=== PATIENT | male | born 1960 | race Caucasian/White ===

== ENCOUNTER 2020-05-14 12:29 | Outpatient (CLI) | payer BC, SELFPAY ==
--- NOTE | ~2020-05-14 | MR_ITS ---
EXAMINATION: MR shoulder LT wo con DATE: 05/14/2020 13:43 INDICATION: Left shoulder pain TECHNIQUE: Magnetic resonance imaging (MRI) of the left shoulder was performed without intravenous co ntrast. Sequences included axial PD-weighted FS FSE, coronal oblique PD-weighted FS FSE, coronal obli que T2-weighted FS FSE, sagittal PD-weighted FS FSE, and sagittal T1-weighted SE. COMPARISON: None. FINDINGS: Coracoacromial arch: The acromion undersurface is curved in morphology (type II). The coracoacromial ligament is normal. M inimal acromioclavicular osteoarthritis. Rotator cuff: The supraspinatus, infraspinatus and teres minor tendons are normal. The subscapularis tendon is norm al. Normal rotator cuff muscle bulk and signal. Biceps tendon, glenoid labrum and glenohumeral cartilage: Long head of the biceps tendon is normal. Linear fluid signal intensity labral tear extending beginni ng posteriorly at the 9:00 position and extending inferiorly extending anteriorly along the inferior labrum to at least the 3:00 position anteriorly. Partial-thickness cartilage loss with smooth chondra l surface along the cephalad aspect of the humeral head. Partial-thickness chondral fissure positione d slightly inferior to the epicenter of the glenoid. Fluid: Physiologic amount of fluid in the glenohumeral joint and biceps tendon sheath. No loose osteochondra l bodies. No abnormal fluid signal in the subacromial/subdeltoid bursa to suggest bursitis. Bones/other: Normal marrow signal with no edema, fracture or pathologic marrow replacing process. There is promine nt thickening and mild increased signal of the joint capsule at the axillary recess as well as at the rotator cuff interval, both findings which can be seen in the setting of adhesive capsulitis which i s a clinical diagnosis. Feathery muscular edema at the central aspect of the deltoid muscle consisten t with low-grade strain without a discrete tear defect. IMPRESSION: 1. Feathery edema at the central deltoid consistent with low-grade strain or contusion in the appropr iate clinical setting. 2. Mild glenohumeral osteoarthritis with tear of the posterior half of the labrum. 3. Thickening of the capsule at the axillary recess and at the rotator cuff interval, both findings w hich can be seen with adhesive capsulitis which is a clinical diagnosis. Reviewed, dictated and finalized at location B. IMPRESSION: 1. Feathery edema at the central deltoid consistent with low-grade strain or co ntusion in the appropriate clinical setting. 2. Mild glenohumeral osteoarthritis with tear of the posterior half of the labr um. 3. Thickening of the capsule at the axillary recess and at the rotator cuff int erval, both findings which can be seen with adhesive capsulitis which is a clin ical diagnosis.
== END 2020-05-14 12:30 | disposition home or self-care (01) ==
PROVIDERS: Visit Provider Orthopaedic Surgery
DX: M19.012 Primary osteoarthritis, left shoulder (principal)
CPT/HCPCS: 73221

== ENCOUNTER 2024-12-31 03:21 | Day surgery (SDC) | payer BC, SELFPAY ==
[2024-12-20 10:08] VITALS: BMI 30.2
--- OUTSIDE RECORDS SUMMARY | 2024-12-31 03:24 | XMS_ITS | Clinical Summary ---
Author Organization [facility] Address [address] [place] [address] Care Team Providers Care Laborer Operator Name Role Phone Cherise Granado MD Primary Care Provider [phone] Source Comments [facility],non-owned Affiliates and Associated Physician Practices is amultiple site organization consisting of ambulatory clinics and hospital sitesin [place], [place], [place] and [place]. This disclosure is being madepursuant to the Care Everywhere program and may not contain all information available regarding this patient. Last updated 18.[facility] Allergies Active Allergy Reactions Criticality Noted Date Comments Hydrocortisone Rash Medium 05/21/2012 Sulfa Drugs Rash Medium Medications * Be aware that medications may not be up to date on this document. Alwaysverify current medications with the patient. aspirin (ASPIRIN) 81 MG tablet Take 81 mg by mouth once daily Active nitroGLYCERIN (NITROSTAT) 0.4 MG tablet Dissolve 1 tablet under the tongue every 5 minutes as needed for Angina 25 tablet 4 11/20/2018 Active hydroCHLOROthia zide (MICROZIDE) 12.5 MG capsule Take 1 capsule by mouth every 2 days 01/03/2020 Active carvedilol (COREG) 25 MG tablet TAKE ONE TABLET BY MOUTH TWICE A DAY 180 tablet 4 01/20/2020 Active rosuvastatin (CRESTOR) 40 MG tablet TAKE ONE TABLET BY MOUTH ONCE DAILY 90 tablet 4 03/02/2020 Active lisinopril (PRINIVIL; ZESTRIL) 40 MG tablet TAKE ONE TABLET BY MOUTH ONCE DAILY 90 tablet 4 03/02/2020 Active amLODIPine (NORVASC) 10 MG tablet TAKE ONE TABLET BY MOUTH ONCE DAILY 90 tablet 4 07/01/2020 Active Active Problems Problem Noted Date Diagnosed Date Renal insufficiency 12/29/2019 Overview (12/29/2019): 01/03 BUN 20 creatinine 1.38 GFR 56 08/05 BUN 18 creatinine 1.24 GFR 64 12/02 BUN 15 creatinine 1.06 GFR 78 Elevated homocysteine 11/20/2018 Overview (11/20/2018): 09/04 homocysteine 18.3 (normal 15 -- no MTHFR mutation) Coronary artery disease invo lving [place] coronary artery of [place] heart 11/19/2018 Overview (11/22/2018): 11/02 NSTE-[place] 11/02 Cath: Normal LVEF, LV 126/4, 60/90% pLAD, 90% ostial D1, 90% ostial OM1, 99% pRCA 11/02 CABG x [address] Monse [place]: SANDOVAL to LAD, SVG to PLV -> PDA, radial to diagonal, SVG to OM Nonrheumatic aortic valve insufficiency 11/20/19 Overview (11/20/2018): 11/02 echo: EF73%, mild AI 11/02 EVANGELINA (OR): EF 55%, mild AI, trace MR/TR Atherosclerosis of right carotid artery 11/20/19 Overview (11/19/2018): 11/02 carotid duplex: right ICA plaque Essential hypertension 11/19/2018 Pure hypercholesterolemia 11/19/2018 Overview (12/29/2019): 01/03 Cholesterol 90 HDL 27 LDL 44 triglyceride 97, normal LFTs/glucose 12/02 Cholesterol 89 HDL 25 LDL 38 triglyceride 129, normal CMP 09/04 Cholesterol 124 HDL 25 LDL 76 triglyceride 113, AST 20, CRP <0.3 06/27 Cholesterol 214 HDL 37 LDL 160 triglyceride 86 Family History Relation Name Status Comments Brother 1 Alive [place] & stents at 48; CABG at 50 Brother 2 Alive no heart diseas e Father Alive no known heart dz, but estranged Mother Alive no heart dz Social History Tobacco Use Types Packs/Day Years Used Date Smoking Tobacco: Never Smokeless Tobacco: Never Sex and Gender Information Value Date Recorded Sex Assigned at Not on file Legal Sex Male 10:05 AM CDT Gender Identity Not on file Sexual Orientation Not on file 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[employer] Not on file Not on file Not on file Last Filed Vital Signs Vital Sign Reading Time Taken Comments Blood Pressure 170/98 06/28/2019 3:30 PM PLASTICS NURSE Pulse 61 06/28/2019 2:55 PM PLASTICS NURSE Temperature - - Respiratory Rate 12 06/28/2019 2:55 PM PLASTICS NURSE Oxygen Saturation 99% 06/28/2019 2:55 PM PLASTICS NURSE Inhaled Oxygen Concentration - - Weight 94.3 kg (208 lb) 06/28/2019 2:55 PM PLASTICS NURSE Height 181 cm (5' 11.25) 06/28/2019 2:55 PM PLASTICS NURSE Body Mass Index 28.81 06/28/2019 2:55 PM PLASTICS NURSE Plan of Treatment Health Maintenance Due Date Last Done Comments COLOGUARD (AGES 45-75) - COL ON CA SCREENING 1961 COLON MONITORING 1961 COLONOSCOPY - COLON CA SCREENING 1961 CT COLONOGRAPHY - COLON CA SCREENING 1961 Colorectal Cancer Screening 1961 FIT - COLON CA SCREENING 1961 FLEX SIG - COLON CA SCREENING 1961 HIV SCREENING 01/20/1976 HEPATITIS C SCREENING 01/15/1979 DTAP/TDAP/TD VACCINES (1 - Tdap) 01/20/1980 PNEUMOCOCCAL VACCINE 50+ (1 of 1 - PCV) 2011 ZOSTER VACCINE (1 of 2) 2011 COVID-19 VACCINE ( - 2023-2 5 season) 2024 DEPRESSION SCREENING 07/17/2024 INFLUENZA VACCINE (Season Ended) 2025 Respiratory Syncytial Virus (RSV) Vaccine Pt: or over 60 yrs (1 - 1-dose 75+ series) 01/20/2036 HEPATITIS B VACCINE Aged Out No longe r eligible based on patient's age to complete this topic HIB VACCINE Aged Out No longer eligi ble based on patient's age to complete this topic HPV VACCINE Aged Out No longer eligi ble based on patient's age to complete this topic MENINGOCOCCAL (Group B) VACC INE SHARED DECISION-MAKING Aged Out No longer eligibl e based on patient's age to complete this topic MENINGOCOCCAL GROUPS A/C/Y/W VACCINE Aged Out No longer eligible b ased on patient's age to complete this topic Insurance ANTHEM Care Teams Laborer Operator Relationship Specialty Start Date End Date Cherise Granado MD [address] [place] [address] PCP - General Rheumatology 11/20/18
--- OUTSIDE RECORDS SUMMARY | 2024-12-31 03:24 | XMS_ITS | Clinical Summary ---
Author Organization [facility] Address [address] [place] [address] Phone Care Team Providers Care Administrative Services Specialist Name Role Phone Paul Espinosa MD Primary Care Provider [phone] Allergies Active Allergy Reactions Criticality Noted Date Comments Hydrocortisone Unknown 05/21/2012 Sulfa (Sulfonamide Antibiotics) Unknown 11/2011 Medications aspirin (VIC) 81 mg Oral Tab Take by mouth. Active hydrochlorothiaz harsh (HYDRODIURIL) 12.5 mg Oral tablet Take 12.5 mg by mouth daily. Active AMLODIPINE BESYLATE (AMLODIPINE ORAL) Take by mouth. Active Social History Tobacco Use Types Packs/Day Years Used Date Smoking Tobacco: Never Alcohol Use Standard Drinks/Week Comments Yes 1.7 (1 standard drink = 0.6 oz p ure alcohol) Sex and Gender Information Value Date Recorded Sex Assigned at Not on file Legal Sex Male 2:53 AM ZINC CHLORIDE OPERATOR Gender Identity Not on file Sexual Orientation Not on file Last Filed Vital Signs Vital Sign Reading Time Taken Comments Blood Pressure 162/103 06/05/2012 9:15 AM ZINC CHLORIDE OPERATOR Pulse 77 06/05/2012 9:15 AM ZINC CHLORIDE OPERATOR Temperature 36.2 C (97.1 F) 06/05/2012 9:09 AM ZINC CHLORIDE OPERATOR Respiratory Rate 18 06/05/2012 9:15 AM ZINC CHLORIDE OPERATOR Oxygen Saturation 97% 06/05/2012 9:15 AM ZINC CHLORIDE OPERATOR Inhaled Oxygen Concentration - - Weight 93 kg (205 lb) 05/29/2012 4:28 PM ZINC CHLORIDE OPERATOR Height 185.4 cm (6' 1) 05/29/2012 4:28 PM ZINC CHLORIDE OPERATOR Body Mass Index 27.05 05/29/2012 4:28 PM ZINC CHLORIDE OPERATOR Plan of Treatment Health Maintenance Due Date Last Done Comments DTAP/TDAP/TD VACCINES (1 - Tdap) 01/20/1980 FIT-DNA Q 3 years 2006 FIT/FOBT Q 1 year 2006 Flex Sig/CT Colonography Q 5 years 2006 ZOSTER VACCINE (1 of 2) 2011 COLORECTAL SCREENING 06/05/2022 06/05/2012, 06/05/20 12 Colorectal Cancer Screening 06/05/2022 INFLUENZA VACCINE (#1) 2024 RSV VACCINE (60+ or ) (1 - 1-dose 75+ series) 01/20/2036 Insurance [facility] [id number] Advance Directives For more information, please contact: [phone] * Full Code (Latest Code Status on File) Date Activated Date Inactivated Comments 06/05/2012 7:55 AM 06/05/2012 11:34 AM Care Teams Administrative Services Specialist Relationship Specialty Start Date End Date Paul Espinosa MD [address] [facility] [address] [id number] PCP - General Internal Medicine 05/21/12
--- OUTSIDE RECORDS SUMMARY | 2024-12-31 03:24 | XMS_ITS | Data Portability ---
Author Organization [facility] [place] [employer] [facility], Medical Address [address] [place] [id number] Care Team Providers Care Sql Ssrs Ssis Developer Name Role Phone CHERISE ALEXANDER Primary Care Provider Unavailabl e Assessment Encounter Date Assessment Date Assessment LastModified by Organization Details LastModified Time 10/05/2018 10/05/2018 Blood draw for [facility] w IV cmirth Not available 10/08/2018 12:06:26 10/05/2018 10/05/2018 1. Patient is definitely having cardiogenic chest pain with abnormal rhythms that i am not able to capture on the ecg. The ecg is not very clear, even after repeating tho it was a better quality. He does have some upsloping st segments in V1 and V2 and tall QRS waves in lateral leads suggestive of LVH and HIGH BP. This is a change from ECG on 08/09 that i read from [facility], where he had more inferior T wave inversion. Also, could he have an atrial flutter pattern with a fairly constant rhythm? I will repeat another ecg. I did let him know this and that if he will not go to the hospital, that i will at the very least start him on coreg 6.25 and increase if needed. He claims that his home BPs run in the 130s. However the tall qrs suggests a more chronic issue. i did call him and talk to him after the visit and let him know about the ecg changes that i did not notice earlier and talked to him about re thinking a stent or intervention if the pain got progressive. He understood and will go to [facility] if it got worse. he will not do vigorous exercise this weekend. Not available 10/05/2018 22:32:28 10/09/2018 10/09/2018 Blood draw for [facility] w IV cmirth Not available 10/09/2018 15:17:07 10/09/2018 10/09/2018 Caden survived the weekend, with no visits to the hospital and since starting coreg, his angina has decreased in severity and he almost has no palpitations. His BP is still high and in the light of angina, i think that he should have better control. I will increase his coreg to 12.5 mg bid. He knows and has been made aware to go to the ER should his pain start at rest or not subside. his ECG compared to last monday, appears the same. he still has some st elevation in V1 and V2. THese were reviewed with the patient. Not available 10/11/2018 13:27:00 Plan of Treatment Reminders Order Date Submit Date Provider Last Modified By Organization Details Last Modified Time Details Appointments None recorded. Lab pro BNP (pro B-type natriureti c peptide), serum or plasma 2018 019 5 Minutes [facility], [address] [facility], [place], [address], 9 14:18:58 Referral None recorded. Procedures None recorded. Surgeries None recorded. Imaging electrocar diogram [address] [facility], [address], [place], [address], 9 14:29:58 electrocar diogram [address] [facility], [address], [place], [address], 9 20:37:49 Medication Orders Coreg 12.5 mg tablet 2018 019 [id number], [address], [place], [address], 9 13:30:29 Coreg 6.25 mg tablet 2018 019 [id number], [address], [place], [address], 9 13:24:21 Patient TargetsNo targets recorded. Patient Instructions Encounter Date Encounter Id Patient Instructions Last Modified By Organization Details Last Modified Time 10/05/2018 [id number] 1. You have let me know that you do not want to go to the hospital. 2. I will start you on coreg for your high BP and also because it dilates the coronary arteries. 3. Please continue chelation therapy along with a strict diet. 4. start cardiac coherence and do it a few more times than just the one that you have done and practice it often. I called the patient back after hours and post his visit to let him know that his ECG looks worrisome to me in the anterior leads. it looks more like an anterior PA. he is not having pain. I told him to keep a very low threshold and to go to the ER If pain get progressive as this is the IDEAL time to place a stent. He understood and will go to [facility] if he needs to. Not available 10/05/2018 22:24:35 TOTAL TIME: I spent greater than 100% of 30 minutes of time with the patient, face to face during my HPI, ROS, and my exam of her. I also counselled on diet, lifestyle modification and a plan of action to help eliminate the underlying conditions leading to her illness as outlined under ' patient instructions' and assessment. Not available 10/05/2018 22:23:04 10/09/2018 [id number] Patient Instructions Please keep IV site clean and dry for at least [address]. -You may experience bruising and discomfort. -You can apply topical Arnica lotion or gel to the area to minimize bruising. -If you experience redness at the site, fevers, or swelling please call [facility] or seek care with your medical provider. -Your urine may turn a bright yellow color due to the B vitamins in the IV. -If your urine turns red or brown you must seek medical attention immediately. [email or web address] Not available 10/09/2018 15:19:55 10/09/2018 [id number] 1. I will double your coreg to 12. 5 mg twice daily. Hopefully this brings your BP down and will decrease the load on your heart. I am glad that the palpitations are nearly gone. 2. COntinue your diet and keep adding a lot of color making dark green the most prominent as it can release NO - nitric oxide , that causes coronary and general vasodilation. it is best to add some vinegar to the greens to release the NO. Not available 10/11/2018 13:29:27 follow up angina and palpitations, with ecg Not available 10/11/2018 13:29:49 Reason for Referral None Reported. Results Created Date Observation Date Name Description Value Unit Range Abnormal Flag Note LastModifiedBy Organization Detail LastModifiedTime 10/06/19 19 10/06/2018 BMP, serum or plasm a glucose 107 mg/dL 65-99 high Fasti ng refer ence inter mark For someo ne witho ut known diabe maine, a gluco se value betwe en 100 and 125 mg/dL is consi stent with predi abete s and shoul d be confi rmed with a follo w-up test. Not Available [address], [address], 10/06/2018 09:29:34 10/06/19 19 10/06/2018 BMP, serum or plasm a urea nitrogen (BUN) 15 mg/dL 7-25 normal Not Available [address], [address], 10/06/2018 09:29:34 10/06/19 19 10/06/2018 BMP, serum or plasm a creatinine 1.06 mg/dL 0.70-1 .33 normal For patie nts >49 years of age, the refer ence limit for Creat inine is appro ximat kimberly 13% highe r for peopl e ident ified as Afric an-Am vijay n. Not Available [address], [address], 10/06/2018 09:29:34 10/06/19 19 10/06/2018 BMP, serum or plasm a eGFR non-afr. malaysian 78 mL/mi n/1.7 3m2 > or = 60 normal Not Available [address], [address], 10/06/2018 09:29:34 10/06/19 19 10/06/2018 BMP, serum or plasm a eGFR 90 mL/mi n/1.7 3m2 > or = 60 normal Not Available [address], [address], 10/06/2018 09:29:34 10/06/19 19 10/06/2018 BMP, serum or plasm a BUN/creatini ne ratio NOT APPLIC ABLE (calc ) 6-22 Not Available [address], [address], 10/06/2018 09:29:34 10/06/19 19 10/06/2018 BMP, serum or plasm a sodium 141 mmol/ L 135-14 6 normal Not Available [address], [address], 10/06/2018 09:29:34 10/06/19 19 10/06/2018 BMP, serum or plasm a potassium 4.3 mmol/ L 3.5-5. 3 normal Not Available [address], [address], 10/06/2018 09:29:34 10/06/19 19 10/06/2018 BMP, serum or plasm a chloride 104 mmol/ L 98-110 normal Not Available [address], [address], 10/06/2018 09:29:34 10/06/1910/06/2018 BMP, serum or plasm a carbon dioxide 31 mmol/ L 20-32 normal Not Available [address], [address], 10/06/2018 09:29:34 10/06/1910/06/2018 BMP, serum or plasm a calcium 9.5 mg/dL 8.6-10 .3 normal Not Available [address], [address], 10/06/2018 09:29:34 10/10/1910/12/2018 pro BNP (pro B-typ e natri ureti c pepti de), serum or plasm a nt probnp 114 pg/mL 50-75 years : < 300 pg/mL Malorie l, heart failu re unlik kimberly > or = 900 pg/mL High proba bilit y of heart failu re For patie nts with CHD, the optim al risk categ ory cut point s for incid ent HF or CVD (<253 pg/mL men, <372 pg/mL women ) are based on Andreea nieves et al., [facility] 2007; 50:20 5 For patie nts with exist ing HF, the optim al risk categ ory cut point for HF progr essio n (<300 pg/mL ) is based on Christiano et al., Clin Bioch em 2010; 43:14 05 HF diagn osis cut point s in dyspn eic patie nts are based on Erasmo crespo et al., Eur Heart J 2006; 27:33 0 For <50 years : <300 pg/mL HF unlik kimberly, > or = 450 pg/mL high proba bilit y of HF; For 50-75 years : <300 pg/mL HF unlik kimberly, > or = 900 pg/mL high proba bilit y of HF; For >75 years : <300 pg/mL HF unlik kimberly, > or = 1800 pg/mL high proba bilit y of HF For addit ional enior rebecca han refer to http: //tiki doll [employer]ia gnost ics.c om/fa q/FAQ 202 (This link is being provi ded for infor dereck nal/e cynthia ionloli purpo ses only. ) Not Available [address], [place], [address], 10/12/2018 20:17:54 10/16/1910/15/2018 elect melvin majano am Rate & Rhythm Not Available Formerly [facility] [address] , [place], [address], 10/09/2018 11:28:24 10/16/19 19 10/15/2018 elect melvin majano am QRS Not Available Formerly [facility]amed [facility] [address], [place], [address], 10/09/2018 11:28:24 10/16/19 19 10/15/2018 elect rocar diogr am NC Interval Not Available Formerly [facility]amed [facility] [address] [facility], [place], [address], 10/09/2018 11:28:24 10/16/19 19 10/15/2018 elect rocar diogr am QRS Duration Not Available [facility] [address] [facility], [place], [address], 10/09/2018 11:28:24 10/16/19 19 10/15/2018 elect rocar diogr am QT Interval Not Available [facility] [address] [facility], [place], [address], 10/09/2018 11:28:24 10/16/19 19 10/15/2018 elect rocar diogr am Rate & Rhythm Not Available Formerly [facility]amed [facility] [address] [facility], [place], [address], 10/05/2018 13:15:56 10/16/19 19 10/15/2018 elect rocar diogr am QRS Not Available Former[facility] [address] [facility], [place], [address], 10/05/2018 13:15:56 10/16/19 19 10/15/2018 elect rocar diogr am NC Interval Not Available Formerly [facility] [address] [facility], [place], [address], 10/05/2018 13:15:56 10/16/19 19 10/15/2018 elect rocar diogr am QRS Duration Not Available Former[facility] [address] [facility], [place], [address], 10/05/2018 13:15:56 10/16/19 19 10/15/2018 elect rocar diogr am QT Interval Not Available [facility] [address] [facility], [place], [address], 10/05/2018 13:15:56 10/06/19 19 elect rocar diogr am No observ ation record ed. Not Available 2018 20:24:53 10/06/19 elect rocar diogr am No observ ation record ed. [email or web address] Not Available 2018 13:28:09 10/06/19 19 elect rocar diogr am No observ ation record ed. Not Available 2018 20:24:53 10/10/19 19 elect rocar diogr am No observ ation record ed. Not Available 2018 14:00:55 10/10/19 19 [facility]3] rocar diogr am No observ ation record ed. Not Available 2018 14:00:55 10/10/19 19 [facility]3] rocar diogr am No observ ation record ed. Not Available 2018 14:00:56 Result Notes None recorded. Problems Name Problem SNOMED Code Status Onset Date Resolution Date Notes Provider Name and Address Organization Details Recorded Time Chest pain 42954574 Active 2018 labs in aug 2018: with high homocystei ne 18.3 B12 309 serum folic acid 6.2 (> 3) MTHFR negative vitamin d- 29 fibrinogen 413 Cherise Chaudhryd Kraken [employer] 9 14:54:59 Adult health examinatio n Active 2018 Cherise Chaudhryd sulma [employer] 9 10:14:07 Essential hypertensi on 98312519 Active 2018 Devon ozuna [employer] 9 08:53:37 Primary hyperchole sterolemia 226215942 Active 2018 Devon Celestenan sulma [employer] 9 08:53:38 Problem Notes None recorded. Procedures Surgical History Date Name Laterality Status Provider Name and Address Organization Details Recorded Time 9 Blood Draw completed Sally Minor [employer] 10/09/2018 15:16:09 9 IV Chelation with EDTA completed Mary Jonas [employer] 10/09/2018 15:20:14 9 Blood Draw completed Maryneha Jonas [employer] 10/09/2018 15:12:45 9 Blood Draw completed Sally Minor [employer] 10/08/2018 12:05:26 9 IV Chelation with EDTA completed Mary MINOR [facility] 10/05/2018 17:30:58 Chest Xray completed Lady TERRY [facility] 08/24/2018 13:06:09 Colonoscopy completed Lady MINOR [facility] 08/24/2018 13:05:32 EKG completed Lady Castillo ZAINAB LM [facility] 08/24/2018 13:05:59 Imaging Results None recorded. Procedure Notes None recorded. Medical Equipment None Reported. Allergies Allergen ID Allergen Name Allergen Category Reaction Reaction Severity Criticality Documentation Date Start Date Code Code System Note Provider Name and Address Organization Details Recorded Time 7807 sulfur dioxide medicatio n Not available Not available Not available 08/24/2018 00921 79 RxNorm sulfu r based Lady ozuna [facility] 9 12:58:47 7808 Substance with sulfonami de structure and antibacte rial mechanism of action (substanc e) medicatio n Not available Not available Not available 08/24/2018 90302 8003 SNOMED sulfu r based Lady ozuna [facility] 9 12:58:45 Medications Name Sig Start Date Stop Date Status Note LastModified by Organization Details LastModified Time carvedilol 6.25 mg tablet Take 1 tablet twice a day by oral route for 30 days. 10/22 completed Not Available Not Available Not Available carvedilol 12.5 mg tablet Take 1 tablet twice a day by oral route for 30 days. active Not Available Not Available No t Available lisinopril 20 mg tablet Take 1 tablet every day by oral route. 10/22 completed Not Available Not Available Not Available Plavix 75 mg tablet Take 1 tablet every day by oral route. 2018 active Not Available Not Available Not Avai lable clotrimazole- betamethasone 1 %-0.05 % topical cream 09/11 completed Not Available Not Available Not Available lisinopril 10 mg tablet Take 1 tablet every day by oral route. 2018 active Not Available Not Available Not Avai lable hydrochloroth iazide 12.5 mg capsule 09/11 completed Not Available Not Available Not Available montelukast 10 mg tablet 09/11 completed Not Available Not Available Not Available Crestor 20 mg tablet Take 1 tablet every day by oral route. 2018 active Not Available Not Available Not Avai lable hydrochloroth iazide 12.5 mg tablet Take 1 tablet every day by oral route. 09/11 completed Not Available Not Available Not Available ProAir RespiClick 90 mcg/actuation breath activated 09/11 completed Not Available Not Available Not Available Vitals Date Recorded Systolic blood pressure Diastolic blood pressure Provider Name and Address Organization Details Last Updated DateTime 10/05/2018 180 mm[Hg] 90 mm[Hg] Marymoses Jonas [employer] 10/05/2018 18:06:12 Date Recorded Body height Body mass index (BMI) Body weight Heart rate Oxygen saturation Oxygen saturation in Arterial blood by Pulse oximetry Systolic blood pressure Diastolic blood pressure Provider Name and Address Organization Details Last Updated DateTime 9 181.61 cm 26.4 kg/m2 32196.7 4 g 84 /min 97 % 97 % 200 mm[Hg] 120 mm[Hg] Geno Rizoasley [employer] 9 14:32:07 Date Recorded Body height Body mass index (BMI) Body weight Oxygen saturation Oxygen saturation in Arterial blood by Pulse oximetry Heart rate Systolic blood pressure Diastolic blood pressure Provider Name and Address Organization Details Last Updated DateTime 9 181.61 cm 26.4 kg/m2 71489.7 4 g 97 % 97 % 78 /min 190 mm[Hg] 105 mm[Hg] Saskia Javier [employer] 9 16:22:23 Date Recorded Systolic blood pressure Diastolic blood pressure Provider Name and Address Organization Details Last Updated DateTime 10/09/2018 158 mm[Hg] 88 mm[Hg] Mary Jonas [employer] 10/09/2018 15:12:21 Date Recorded Body height Heart rate Oxygen saturation Oxygen saturation in Arterial blood by Pulse oximetry Systolic blood pressure Diastolic blood pressure Provider Name and Address Organization Details Last Updated DateTime 9 181.61 cm 64 /min 98 % 98 % 205 mm[Hg] 98 mm[Hg] Sherrie Eller [employer] 9 12:52:58 Date Recorded Body height Heart rate Oxygen saturation Oxygen saturation in Arterial blood by Pulse oximetry Systolic blood pressure Diastolic blood pressure Provider Name and Address Organization Details Last Updated DateTime 9 181.61 cm 68 /min 98 % 98 % 155 mm[Hg] 96 mm[Hg] Geno Vargas [employer] 9 12:53:43 Social History Question Answer Notes LastModified by Organizat ion Details LastModified Time Tobacco Smoking Status Never Smoker Lady ozuna [employer] 08/24/2018 13:06:48 Animal Exposure? Yes Both Indoors And Outdoors Information not available 08/24/2018 Education Post Graduate Information not available 08/24/2018 Have There Been Any Changes To Your Family Or Social Situation? No Information not available 08/24/2018 Hobbies/Activiti es Triathons, Running, Photography Information not available 08/24/2018 International Travel Rosie/Sweetie Information not available 08/24/2018 Where Do You Live? House Information not available 08/24/2018 With Whom Do You Live Son Information not available 08/24/2018 Individuals Around You Are Supportive Information not available 08/24/2018 Week Days I Spend Mostly Working Within 60 Min From Home Information not available 08/24/2018 Weekends I Spend Mostly Staying Comfortable At Home Hobbies Information not available 08/24/2018 Time Lost From Work This Year Due To Illness 0-2 Days Information not available 08/24/2018 Relaxation Methods Exercise Information not available 08/24/2018 Living Adjustments Due To Health Changed To Whole Food/plant-bas ed Diet This Year (Jul 2018) Information not available 08/24/2018 Major Loses No Information n ot available 08/24/2018 Synagogue Not At All Information no t available 08/24/2018 Spirituality Not At All Information not available 08/24/2018 Feel Safe Growing Up Yes Information not available 08/24/2018 Abusive Relationship In Past No Information not available 08/24/2018 Alcoholism Or Substance Abuse In Childhood Home No Information not available 08/24/2018 Alcoholism Or Substance Abuse In Current Home Or Relationship No Information not available 08/24/2018 Feel Safe In Current Home Yes Information not available 08/24/2018 Feel Safe, Respected, And Valued In Current Relationship Yes Information not available 08/24/2018 Violent Or Trauma Experiences No Information not available 08/24/2018 Safety Discussion In Private No Information not available 08/24/2018 Alcohol Intake Quantity Less Than Once A Month Information not available 08/24/2018 Alcohol Intake Variety Cocktail Information not available 08/24/2018 Do You Think You Have A Problem With Alcohol No Information not available 08/24/2018 Does Anyone In Your Life Think You Have A Problem With Alcohol No Information not available 08/24/2018 Recreational Drugs No Information not available 08/24/2018 Current Employment Status Working Full-time Information not available 08/24/2018 Stress Level (10 Most, 1 Least) 3 2-3 Information not available 08/24/2018 Unhealthy Stress Is Present No Information not available 08/24/2018 Ways To Release Stress Exercie, Friends, Movies Information not available 08/24/2018 Sources Of Stress Are Health Condition And Work Information not available 08/24/2018 Work/School Adjustments Due To Health I Can't Run Or Train At Optimal Level Information not available 08/24/2018 Exposures Yes Auto Exhaust, [place] Fumes, Solvents, Plastics, Welding, Extreme Temperature s, Chemicals, Dry-cleaned Clothes, Nail [place] Zealander, Perfumes, Heights And Depths Information not available 08/24/2018 What Was The Date Of Your Most Recent Tobacco Screening? 10/09/2018 Information not available 02/07/2019 How Many Children Do You Have? 2 Information not available 08/24/2018 Do You Have Any Siblings? 2 Brothers Information not available 08/24/2018 Are There Any Smokers In Your House? No Information not available 08/24/2018 How Much Tobacco Do You Smoke? No Information not available 08/24/2018 Sex: Unknown Functional Status Question Answer Note LastModified by Organizat ion Details LastModified Time What is your level of alcohol consumption? 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 Family History Relationship Description Onset Age of this Age Resolved Age Notes LastModified by Organization Details LastModified Time Brother Heart disease Not available 2018 12:59:07 Maternal Grandmother Hypertensive disorder Not available 2018 12:59:19 Maternal Grandmother Kidney disease Not available 2018 12:59:26 Medical History Condition Response Coronary Artery Disease N Other N Gout N High Blood Pressure Y Kidney Stones N Hyperthyroidism N MRSA N INJURIES N Chronic Sinusitis N Gerd/Reflux N Braces N Congenital Heart Disease N Depression N Pneumonia N BLOOD/INFLAMMATORY/IMMUNE N Complex Regional Pain Syndrome N Headache/Migraine N Sinusitis N RESPIRATORY N Gall stones N Bulimia N Obesity N Arthritis N Polycystic Ovarian Syndrome N Infertility N Congenital Disorder N Stroke N Crohn's Disease N Neck Injury N HIV/AIDS N CARDIOVASCULAR N Skin Cancer Y Mood disorder N Fibromyalgia N Irritable Bowel Syndrome N Kidney Disease N Concussion/Traumatic Brain Injury N Inflammatory bowel disease N Chronic Fatigue Syndrome N Anxiety Y Hospitalizations Y Irregular HR/Arrhythmia N Heart Attack/PA N Herpes N GASTROINTESTINAL N Acne N PTSD N Celiac Disease N Constipation N Bleeding Disorder N Hepatitis/Liver Disease N Broken bone N Cerebral Palsy N Tuberculosis N METABOLIC/ENDOCRINE N Asthma Y Dental Visits 2x/year N Silver/Mercury Amalgum fillings N Chronic Ear Infections N Bipolar disorder N Oral Steroids as Adult Y MENTAL HEALTH N URINARY/REPRODUCTIVE N Anorexia N Hypothyroidism N Developmental delay N Pacemaker N Panic attacks N DERMATOLOGIC N Gastic or peptic ulcers N Food intolerance N Yeast infections N Prostate problem N Mononucleosis N Chronic pain N Hypoglycemia N Severe infections N ORAL HEALTH N Metabolic syndrome N Back Injury N High Cholesterol N Antibiotic Use as Teen Y CANCER Y Type 1 Diabetes N Autism/Autism Spectrum Disorder (ASD) N Autoimmune Disease N Allergies/Hayfever N Recurrent Fractures N Head Injury N Osteoarthritis N NEUROLOGIC N Rheumatic fever N Parkinson's Disease N Oral Steroids as Teen N ADD/ADHD N Anemia N Multiple Sclerosis N Back Pain N Type 2 Diabetes N Bronchitis/Emphysema Y Dentures N Retainer N Cardiomyopathy N Seizures/Epilepsy N Heart Murmur N Congestive Heart Failure (CHF) N Valvular Heart Disease N Cancer and treatments N Eczema N MUSCULOSKELETAL/PAIN N Dementia N Urinary tract infections N Ulcerative colitis N Lupus N Learning Disorder/Difficulty N Connective Tissue Disorder N Blood Clotting Disorder N Antibiotic Use as Adult Y Psoriasis N Sleep Apnea N Oral Steroids as Infant/Child N Antibiotic Use in Infancy/Childhood Y Osteoporosis N Past Encounters Encounter ID Performer Location Encounter Start Date Encounter Closed Date Diagnosis/Indication Diagnosis SNOMED-CT Code Diagnosis ICD10 Code Diagnosis Note [id number] Cherise Alexander MD [place] [phone] [id number] 08/27/2018 08:37:27 08/27/2018 11:09:14 Chest pain 43143390 R07.9 cardiogeni cnot wanting to see cardiologi st, get stress test or do the [facility]. Adult heal th examination 006405769 Z00.00 Essential hypertension 33447324 I10 Onychomyco sis of toenails 200122583 B35.1 Stress and adjustment reaction [id number] F43.9 [id number] Cherise Alexander MD [place] [address] 4 09/11/2018 07:48:09 09/11/2018 09:43:12 Essential hypertension 89698071 I10 Primary hypercholesterolemia 679278027 E78.00 Chest pain 78769106 R07. 9 cardiogeni cnot wanting to see cardiologi st, get stress test or do the [facility]. Coronary arteriosclerosis in [place] artery 4678019459 107 I25.10 Serum arian min B12 below reference range 507571528 R79.89 [id number] Cherise Alexander MD [place] [id number] 4 10/03/2018 18:11:04 10/03/2018 19:35:22 Chest pain 68601835 R07.9 cardiogeni cnot wanting to see cardiologi st, get stress test or do the [facility]. Essential hypertension 18434304 I10 Palpitations 05625246 R0 0.2 Aphthous u lcer of mouth 765967675 K12.0 [id number] Cherise Alexander MD [address] [address] 10/05/2018 13:07:31 10/05/2018 13:55:09 Chest pain 05172904 R07.9 cardiogeni cnot wanting to see cardiologi st, get stress test or do the [facility]. Palpitations 06148275 R0 0.2 [id number] Saskia Herrera [place] [address] 4 10/05/2018 13:18:09 10/05/2018 17:06:18 Primary hypercholesterolemia 903372880 E78.00 [id number] Cherise Alexander MD [place] [address] 4 10/05/2018 13:18:44 10/05/2018 13:58:41 Primary hypercholesterolemia 502161304 E78.00 [id number] [place] [address] 4 10/09/2018 08:02:11 10/09/2018 13:38:58 Chest pain 79263305 R07.9 Primary hypercholesterolemia 646740359 E78.00 Essential hypertension 12005071 I10 [id number] Cherise Alexander MD [place] [address] 4 10/09/2018 08:03:33 10/09/2018 12:02:31 Primary hypercholesterolemia 230416148 E78.00 [id number] Cherise Alexander MD [place] [address] 4 10/09/2018 09:40:49 10/09/2018 09:52:01 Angina pectoris 898333140 I20.9 Essential hypertension 46427724 I10 Health Concerns Section Related Observation LastModified by Organization Detai ls LastModified Time None Recorded Concern Status LastModified by Organization Details LastModified Time None Recorded Advance Directives Directive None Recorded Payers Insurance Date Sequence Insurance Name Policy Number Policy Posadas Covered Member ID Posadas Member ID Guarantor Name 01/22/2019 1 [place] [id number] Caden Hatfield [id number] Caden Hatfield Notes Date Note Type Note Provider Name and Address Organization Details Recorded Time 10/05/2018 text/html patient called complaining of abnormal rhythms as he climbs stairs or exerts.this is associated with chest pain and he got worried.he refused to go to the ER as he will not subject himself to CC and Stents or bypass . He is sure that he can correct this with diet.he walked a lot before he came into the office so that i could capture the abnormal beats. He says that it usually dissipates when he lays down and the ECG is done laying down MILY Layton Filec[employer]ed 10/05/2018 22:36:45 10/09/2018 text/html 1. HTN - BP stil l a little high despite the addition of coreg 6.25 mg bid.I will increase coreg to 12.5 mg bidhe knows to take 2 twice daily 2. Palpitations are much better and almost gone since the addition of coreg 3. angina pectoris is better as well over the weekend. today is his second chelation.he is still insistent on not going the route of getting a stent. MILY Layton Filec[employer]ed 10/11/2018 13:30:34
--- OUTSIDE RECORDS SUMMARY | 2024-12-31 03:24 | XMS_ITS | Referral Summary ---
Author Organization [place] [address] Address [address] [place] [address] Care Team Providers Care Burrer Hand Name Role Phone Paul Espinosa MD Primary Care Provider [phone] Allergies Active Allergy Reactions Criticality Noted Date Comments Qfiumtgl-Rspjxoahwu-Wggdvgxjm Rash Medium 2021 Sulfa (Sulfonamide Antibiotics) Rash Medium 02/14 Medications amLODIPine (NORVASC) 10 mg tablet Take 1 tablet (10 mg total) by mouth daily 01/14/2022 Active lisinopriL (PRINIVIL,ZESTRI L) 40 mg tablet Take 1 tablet (40 mg total) by mouth daily 02/13/2022 Active ezetimibe (ZETIA) 10 mg tablet Take 1 tablet (10 mg total) by mouth daily 02/13/2022 Active rosuvastatin (CRESTOR) 40 mg tablet Take 1 tablet (40 mg total) by mouth daily 01/26/2022 Active carvediloL (COREG) 25 mg tablet Take 1 tablet (25 mg total) by mouth 2 (two) times a day 02/12/2022 Active clopidogreL (Plavix) 75 mg tablet Take 1 tablet every day by oral route. 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 Gender Identity Not on file Sexual Orientation Not on file Last Filed Vital Signs Vital Sign Reading Time Taken Comments Blood Pressure 168/99 11/02/2023 3:23 PM CDT Pulse 77 11/02/2023 3:23 PM CDT Temperature 36.4 C (97.6 F) 11/02/2023 3:23 PM CDT Respiratory Rate 20 11/02/2023 3:23 PM CDT Oxygen Saturation 98% 11/02/2023 3:23 PM CDT Inhaled Oxygen Concentration - - Weight 99.3 kg (219 lb) 11/02/2023 3:23 PM CDT Height 182.9 cm (6') 11/02/2023 3:23 PM CDT Body Mass Index 29.7 11/02/2023 3:23 PM CDT Plan of Treatment Not on file Insurance [employer] [place] [employer] [place] [employer] Care Teams Burrer Hand Relationship Specialty Start Date End Date Paul Espinosa MD [address] [facility] [address] [place] [address] PCP - General 09/12/10
--- OUTSIDE RECORDS SUMMARY | 2024-12-31 03:24 | XMS_ITS | Clinical Summary ---
Author Organization [place] [address] Address [address] [place] [address] Care Team Providers Care Car Whacker Name Role Phone Paul Espinosa MD Primary Care Provider [phone] Allergies Active Allergy Reactions Criticality Noted Date Comments Hsqwpfqi-Ezhzqexghk-Riotomxeh Rash Medium 2021 Sulfa (Sulfonamide Antibiotics) Rash [...] Active Active Problems No known active problems Medical History Medical History Date Comments Hypertension Hypertension Social History Tobacco Use Types Packs/Day Years Used Date Smoking Tobacco: Never Sex and Gender Information Value Date Recorded Sex Assigned at Not on file 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 Gender Identity Not on file Sexual Orientation Not on file Obstetrics History Last Filed Vital Signs Vital Sign Reading [...] 11/02/2023 3:23 PM CDT Plan of Treatment Health Maintenance Due Date Last Done Comments Colon Cancer Screening-Colonoscopy 1961 Depression Screening 1961 Hepatitis C Screening 1961 Prostate Cancer Screening-PSA 1961 Hepatitis B Screening 1979 Regular Well Visit/Exam 18-64 1979 Covid-19 Vaccine ( season) 2024 11/09/2021, 05/17/2021, 10/05/2020, Additional history exists DTaP/Tdap/Td Vaccine (2 - Td or Tdap) 06/08/2031 06/08/2021 Zoster Vaccine Completed 08/19/2020, 05/13/2020 Influenza Vaccine Completed 03/09/2024, , 05/13/2020 Pneumococcal vaccine <65 Aged Out No longer eligible based on patient's age to complete this topic [place] [employer] [place] Care Teams Car Whacker Relationship Specialty Start Date End Date Paul Espinosa MD [address] [place] [address] [address] [place] [address] PCP - General 09/12/10
--- OUTSIDE RECORDS SUMMARY | 2024-12-31 03:24 | XMS_ITS | Encounter Summary ---
Author Organization [facility] Address [address] [place] [address] Care Team Providers Care Sandwich Board Carrier Name Role Phone Paul Espinosa MD Primary Care Provider [phone] Encounter Details Date Type Department Care Team (Late st Contact Info) Description 08/18/1998 Outpatient Historical 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
[2024-12-31 07:42] VITALS: BP 174/98; PULSE 79; RESP 20; TEMP 36.4; O2SAT 98; BMI 29.9
--- NOTE | 2024-12-31 07:54 | SUR.PREOP ---
was notified of patients blood pressure. pt stated i get anxious in hospitals and didn't take blood pressure medication this morning. is okay to proceed with procedure.
[2024-12-31] MEDS: LACTATED RINGERS 1,000 ML 150 ML IV CONT (08:08)
--- NOTE | 2024-12-31 08:34 | PM.IMHP ---
H&P: HPI History of Present Illness Date/Time: 12/31/24 08:34 Chief Complaint: Screening colonoscopy Narrative: This is the patient's 2nd colonoscopy. There are no GI symptoms and there is no family history of colorectal cancer. Review of Systems Review of Systems: All systems reviewed & are unremarkable except as noted in HPI and below PMFSH Past Medical History Medical History Plantar fasciitis of left foot Left foot pain Hypertension Surgical History Surgical History History of heart bypass surgery Family History Family History Mother Dementia Father Kidney failure Other Heart disease Social History Social History Smoking status: Never smoker Alcohol intake: current Alcohol use details: Occasional - clear alcohol Substance use: never Substance use type: does not use Do You Feel Safe in your Home?: Yes Lack of Transportation: No Lack of Food: Never True Current Housing: I Have Housing Concerned About Future Housing: No Difficulty Paying Gas/Electric Bills: No Difficulty Paying for Meds: No Currently Unemployed: No Education: Master's Degree or Higher Difficulty w/ Childcare or Family Care: No Living arrangements: with family Meds Home Medications and Allergies Home Medications ?Medication ?Instructions ?Recorded ?Confirmed ?Type amlodipine 10 mg tablet 10 mg PO DAILY 09/09/24 12/31/24 History aspirin 81 mg tablet,delayed 81 mg PO DAILY 09/09/24 12/31/24 History release carvedilol 12.5 mg tablet 12.5 mg PO BID 09/09/24 12/31/24 History lisinopril 40 mg tablet 40 mg PO DAILY 09/09/24 12/31/24 History nitroglycerin 0.4 mg sublingual 0.4 mg sublingual PRN PRN chest 09/09/24 12/20/24 History tablet pain rosuvastatin 40 mg tablet 40 mg PO DAILY 09/09/24 12/31/24 History meclizine 25 mg tablet 25 mg PO BID PRN dizziness #20 tabs 11/01/24 12/20/24 Rx fluticasone propionate 50 1 spray intranasal Q12H #48 grams 11/25/24 12/31/24 Rx mcg/actuation nasal spray,suspension Allergies Allergy/AdvReac Type Severity Reaction Status Date / Time Sulfa (Sulfonamide Allergy Unknown Unknown Verified 12/31/24 07:49 Antibiotics) bacitracin AdvReac Unknown RASH Verified 12/31/24 07:49 neomycin AdvReac Unknown RASH Verified 12/31/24 07:49 polymyxin B AdvReac Unknown RASH Verified 12/31/24 07:49 Vital Signs Vital Signs - 24 hr 12/31/24 07:42 Temperature 97.5 F L Pulse Rate 79 Respiratory Rate 20 Blood Pressure 174/98 H Pulse Oximetry 98 Oxygen Delivery Room Air Exam Const: General: cooperative and healthy appearing Resp: Effort & Inspection: normal respiratory effort and able to speak in complete sentences Auscultation: clear to auscultation bilaterally Cardio: Rate: regular rate Rhythm: regular rhythm GI: Inspection: normal to inspection GI Palp: No No hepatosplenomegaly present Auscultation: normal bowel sounds Rectal Exam: deferred Skin: General skin exam: normal color Psych: Appearance: grossly normal Mental Status: mental status grossly normal Assessment and Plan Assessment and plan (1) Screening for colon cancer: Code(s): Z12.11 - Encounter for screening for malignant neoplasm of colon Status: Acute Assessment and Plan: The patient is deemed a good candidate for the procedure. Consent signed. Will proceed.
--- NOTE | 2024-12-31 08:35 | P.PNAN_ITS ---
Anes - Initial Pre Proc Eval Procedure: Operation Date: 12/31/24 09:00 Proposed Procedures p Screening Colonoscopy - Joshua Chaves MD Date/Time: 12/31/24 08:35 Surgeon: Joshua Chaves MD Pre Op Diagnosis: screening Patient Data Age: 64 Gender: M Height: 1.83 m Weight: 100.4 kg Last Vital Signs Temp 36.4 C L 12/31/24 07:42 Pulse 79 12/31/24 07:42 Resp 20 12/31/24 07:42 BP 174/98 H 12/31/24 07:42 Pulse Ox 98 12/31/24 07:42 O2 Del Method Room Air 12/31/24 07:42 Allergies Allergy/AdvReac Type Severity Reaction Status Date / Time Sulfa (Sulfonamide Allergy Unknown Unknown Verified 12/31/24 07:49 Antibiotics) bacitracin AdvReac Unknown RASH Verified 12/31/24 07:49 neomycin AdvReac Unknown RASH Verified 12/31/24 07:49 polymyxin B AdvReac Unknown RASH Verified 12/31/24 07:49 Home Medications ?Medication ?Instructions ?Recorded ?Confirmed ?Type amlodipine 10 mg tablet 10 mg PO DAILY 09/09/24 12/31/24 History aspirin 81 mg tablet,delayed 81 mg PO DAILY 09/09/24 12/31/24 History release carvedilol 12.5 mg tablet 12.5 mg PO BID 09/09/24 12/31/24 History lisinopril 40 mg tablet 40 mg PO DAILY 09/09/24 12/31/24 History nitroglycerin 0.4 mg sublingual 0.4 mg sublingual PRN PRN chest 09/09/24 12/20/24 History tablet pain rosuvastatin 40 mg tablet 40 mg PO DAILY 09/09/24 12/31/24 History meclizine 25 mg tablet 25 mg PO BID PRN dizziness #20 tabs 11/01/24 12/20/24 Rx fluticasone propionate 50 1 spray intranasal Q12H #48 grams 11/25/24 12/31/24 Rx mcg/actuation nasal spray,suspension Patient hx anesthesia problems: none Family hx anesthesia problems: none Results Review: All pre-operative results and documents have been reviewed as part of the pre- operative evaluation. [facility] Past Medical History Medical History Plantar fasciitis of left foot Left foot pain Hypertension Surgical History Surgical History History of heart bypass surgery Family History Family History Mother Dementia Father Kidney failure Other Heart disease Social History Social History Smoking status: Never smoker Alcohol intake: current Alcohol use details: Occasional - clear alcohol Substance use: never Substance use type: does not use Do You Feel Safe in your Home?: Yes Lack of Transportation: No Lack of Food: Never True Current Housing: I Have Housing Concerned About Future Housing: No Difficulty Paying Gas/Electric Bills: No Difficulty Paying for Meds: No Currently Unemployed: No Education: Master's Degree or Higher Difficulty w/ Childcare or Family Care: No Living arrangements: with family Anes - Eval Final PreProcedure Day of Procedure 12/31/24 08:35 Patient weight: obese Heart: regular rate and rhythm Lungs: clear to auscultation Airway: Mallampati scale class II Neurological: alert and oriented Last oral intake: >/= 8 hours ASA classification: III Emergent: no Anesthetic plan: proceed Anesthesia type and monitoring: general GIVS and standard monitoring Results Review: All pre-operative results and documents have been reviewed as part of the pre- operative evaluation. Informed Consent: The patient's anesthetic plan and its attendant risks and benefits were discussed with the patient/family/POA. Questions were solicited and answers provided to the satisfaction of the patient/family/POA.
[2024-12-31 08:54] VITALS: BP 111/72; PULSE 55; RESP 14; O2SAT 95
[2024-12-31 09:04] VITALS: BP 126/81; PULSE 56; RESP 16; O2SAT 96
[2024-12-31 09:14] VITALS: BP 146/94; PULSE 52; RESP 14; O2SAT 99
== END 2024-12-31 09:21 | disposition home or self-care (01) ==
PROVIDERS: PCP Family Medicine; Referring Provider Family Medicine; Visit Provider Internal Medicine Gastroenterology
PROC: 0DJD8ZZ Inspection of Lower Intestinal Tract, Via Natural or Artificial Opening Endoscopic (ICD-10-PCS; CPT 45378; principal; 2024-12-31 09:00)
DX: Z12.11 Encounter for screening for malignant neoplasm of colon (principal); K64.8 Other hemorrhoids; I10 Essential (primary) hypertension; M72.2 Plantar fascial fibromatosis; E66.9 Obesity, unspecified; Z68.30 Body mass index [BMI] 30.0-30.9, adult; Z79.82 Long term (current) use of aspirin; Z95.1 Presence of aortocoronary bypass graft; Z82.49 Family history of ischemic heart disease and other diseases of the circulatory system
CPT/HCPCS: 45378; J2003; J2704; J7120

== ENCOUNTER 2025-04-27 23:31 | Emergency (ER) | payer BC, SELFPAY ==
--- NOTE | ~2025-04-27 | CT_ITS ---
EXAMINATION: CTA brain carotid DATE: 04/28/2025 03:40 INDICATION: Tinnitus. Pulsating in the right neck and right ear. TECHNIQUE: Computed tomographic angiography (CTA) of the head was performed without and with 100 mL Omnipaque-350 intravenous contrast. CTA of the neck was performed with intravenous contrast. Automated exposure control and iterative reconstruction technique were employed. The dose-length product was 1789.46 mGy- cm. Maximum intensity projection and volume rendered 3D-reconstructions were created by the technologist on a separate workstation. COMPARISON: None. FINDINGS: HEAD CTA: There is no intracranial hemorrhage, acute infarction, or abnormal intracranial mass lesion. The ventricles are normal in size. The orbits are normal. There are mucous retention cysts in the paranasal sinuses. There is a high riding right jugular bulb. There is a small right mastoid effusion. There is a trace left mastoid effusion. The vertebral arteries are codominant. There is no significant stenosis of basilar artery or the posterior cerebral arteries. There is no significant stenosis of the intracranial internal carotid arteries or anterior or middle cerebral arteries. Anterior communicating artery is normal. The posterior communicating arteries are normal. There is no aneurysm. NECK CTA: There are no pathologically enlarged lymph nodes. There is no significant stenosis of the vertebral arteries. There is minimal plaque in the proximal internal carotid arteries. There is 0% stenosis of the proximal right internal carotid artery relative to normal distal artery lumen diameter (NASCET criteria). There is 0% stenosis of the proximal left internal carotid artery relative to normal distal artery lumen diameter. There is moderate cervical spondylosis. IMPRESSION: 1. Normal brain. 2. No aneurysm or significant intracranial arterial stenosis. 3. 0% stenosis of the proximal internal carotid arteries relative to normal distal artery lumen diameters (NASCET criteria). Reviewed, dictated and finalized at location E. IMPRESSION: 1. Normal brain. 2. No aneurysm or significant intracranial arterial stenosis. 3. 0% stenosis of the proximal internal carotid arteries relative to normal dis luis miguel artery lumen diameters (NASCET criteria).
[2025-04-27 23:45] VITALS: BP 167/74; PULSE 68; RESP 18; TEMP 36.4; O2SAT 98
--- OUTSIDE RECORDS SUMMARY | 2025-04-28 01:34 | XMS_ITS | Clinical Summary ---
Author Organization [facility] Address [address] [place] [address] Care Team Providers Care High School Assistant Football Coach Name Role Phone Cherise Granado MD Primary Care Provider [phone] Source Comments [facility],non-owned Affiliates and Associated Physician Practices is amultiple site organization consisting of ambulatory clinics and hospital sitesin [place], [place], [place] and [place]. This disclosure is being madepursuant to the Care Everywhere program and may not contain all information available regarding this patient. Last updated 18.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[employer] Not on file Not on file Not on file Last Filed Vital Signs Vital Sign Reading Time Taken Comments Blood Pressure 170/98 06/28/2019 3:30 PM DATA STEWARD Pulse 61 06/28/2019 2:55 PM DATA STEWARD Temperature - - Respiratory Rate 12 06/28/2019 2:55 PM DATA STEWARD Oxygen Saturation 99% 06/28/2019 2:55 PM DATA STEWARD Inhaled Oxygen Concentration - - Weight 94.3 kg (208 lb) 06/28/2019 2:55 PM DATA STEWARD Height 181 cm (5' 11.25) 06/28/2019 2:55 PM DATA STEWARD Body Mass Index 28.81 06/28/2019 2:55 PM DATA STEWARD Plan of Treatment Health Maintenance Due Date [...] 2011 ZOSTER VACCINE (1 of 2) 2011 DEPRESSION SCREENING 07/17/2024 COVID-19 VACCINE ( - 2023-2 5 season) 2025 INFLUENZA VACCINE (#1) 2025 Respiratory Syncytial Virus (RSV) Vaccine Pt: [...] complete this topic Insurance [employer] Care Teams High School Assistant Football Coach Relationship Specialty Start Date End Date Cherise Granado MD [address] [place] [address] PCP - General Rheumatology 11/20/18
--- OUTSIDE RECORDS SUMMARY | 2025-04-28 01:34 | XMS_ITS | Encounter Summary ---
Author Organization [facility] Address [address] [place] [address] Care Team Providers Care Store Coordinator Name Role Phone Paul Espinosa MD Primary Care Provider [phone] Encounter Details Date Type Department Care Team (Late st Contact Info) Description 08/18/1998 Outpatient Historical 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
--- OUTSIDE RECORDS SUMMARY | 2025-04-28 01:34 | XMS_ITS | Clinical Summary ---
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 Gender Identity Not on file Sexual Orientation [...] Visit/Exam 18-64 1979 Covid-19 Vaccine ( season) 2025 11/09/2021, 05/17/2021, 10/05/2020, Additional history exists DTaP/Tdap/Td Vaccine (2 - Td or Tdap) 06/08/2031 06/08/2021 Zoster Vaccine Completed 08/19/2020, 05/13/2020 Influenza Vaccine Completed 03/25/2025, , 04/20/2021, Additional history exists Pneumococcal vaccine <65 Aged Out No longer eligible based on patient's age to complete this topic Insurance [employer] [facility] [place] Care Teams Warehouse Incentive Selector Relationship Specialty Start Date End Date Paul Espinosa MD [address] [facility] [address] [place] [address] PCP - General 09/12/10
--- NOTE | 2025-04-28 01:47 | ED.EAR ---
HPI - Ear Problem General Chief complaint: Ear <Geno Huang APRN - Last Filed: 04/28/25 02:45> Stated complaint: R ear rushing sound <Geno Huang APRN - Last Filed: 04/28/25 02:45> Time Seen by Provider: 04/28/25 01:21 <Geno Huang APRN - Last Filed: 04/28/25 02:45> History of Present Illness HPI Narrative: Patient is a 65-year-old male who presents to the ER with his right ear pulsating. He reports the symptom is so strong it woke him out of his sleep last night. Patient denies any significant pain to the area, is concerned that he has an aneurysm. He denies any headaches, visual changes, neck pain, mastoid tenderness or recent fevers. Patient endorses a history of high blood pressure and reports he is on three blood pressure medications. His chart also indicates he has a history of vertigo and hyperlipidemia. <Geno Huang APRN - Last Filed: 04/28/25 02:45> Related Data Home medications: Home Medications ?Medication ?Instructions ?Recorded ?Confirmed ?Last Taken ?Type amlodipine 10 mg tablet 10 mg PO DAILY 09/09/24 03/25/25 12/30/24 History aspirin 81 mg tablet,delayed 81 mg PO DAILY 09/09/24 03/25/25 12/29/24 History release carvedilol 12.5 mg tablet 12.5 mg PO BID 09/09/24 03/25/25 12/30/24 History lisinopril 40 mg tablet 40 mg PO DAILY 09/09/24 03/25/25 12/30/24 History nitroglycerin 0.4 mg sublingual 0.4 mg sublingual PRN PRN chest 09/09/24 03/25/25 Unknown History tablet pain rosuvastatin 40 mg tablet 40 mg PO DAILY 09/09/24 03/25/25 12/30/24 History <Geno Huang APRN - Last Filed: 04/28/25 02:45> Allergies/adverse reactions: Allergies Allergy/AdvReac Type Severity Reaction Status Date / Time Sulfa (Sulfonamide Allergy Unknown Unknown Verified 04/27/25 23:47 Antibiotics) bacitracin AdvReac Unknown RASH Verified 04/27/25 23:47 neomycin AdvReac Unknown RASH Verified 04/27/25 23:47 polymyxin B AdvReac Unknown RASH Verified 04/27/25 23:47 <Geno Huang APRN - Last Filed: 04/28/25 02:45> Review of Systems Review of Systems: All systems reviewed & are unremarkable except as noted in HPI and below <Geno Huang APRN - Last Filed: 04/28/25 02:45> PMFSH Past Medical History Medical History: Medical History Plantar fasciitis of left foot Left foot pain Hypertension <Geno Huang APRN - Last Filed: 04/28/25 02:45> Surgical History Surgical History: Surgical History History of heart bypass surgery <Geno Huang APRN - Last Filed: 04/28/25 02:45> Family History Family History: Family History Mother Dementia Father Kidney failure Other Heart disease <Geno Huang APRN - Last Filed: 04/28/25 02:45> Social History Social History: Social History Smoking status: Never smoker Alcohol intake: current Alcohol use details: Occasional - clear alcohol Substance use: never Substance use type: does not use Do You Feel Safe in your Home?: Yes Lack of Transportation: No Lack of Food: Never True Current Housing: I Have Housing Concerned About Future Housing: No Difficulty Paying Gas/Electric Bills: No Difficulty Paying for Meds: No Currently Unemployed: No Education: Master's Degree or Higher Difficulty w/ Childcare or Family Care: No Living arrangements: with family Spiritual care concerns: No <Geno Huang APRN - Last Filed: 04/28/25 02:45> Exam Narrative: GENERAL: Well appearing, well-nourished, non-toxic, in no acute distress. HEAD: Normocephalic, atraumatic. No mastoid tenderness. Bilateral tympanic membranes pearly white and intact. NECK: Supple. No adenopathy, no masses. RESPIRATORY: Airway patent, respirations nonlabored. Clear to auscultation bilaterally, no rales, rhonchi, wheezing. CARDIOVASCULAR: Regular rate and rhythm without murmurs, rubs, or gallops. Peripheral pulses 2+ and equal bilaterally. ABDOMINAL: Soft, nontender, nondistended, no hepatosplenomegaly. Normoactive BS. MUSCULOSKELETAL: Moves all extremities. Strength/ROM intact without gross deformities. SKIN: Warm, dry, normal color. No rashes. NEURO: A&O X3. Speech clear. Cranial nerves II-XII intact. No ataxic movements. PSYCHIATRIC: Appropriate mood and affect. Normal interaction. <Geno Huang, [employer]ATION AND [employer]ING ASSEMBLER - Last Filed: 04/28/25 02:45> Course Vital Signs Vital signs: Vital Signs Temperature 97.5 F L 04/27/25 23:45 Pulse Rate 68 04/27/25 23:45 Respiratory Rate 18 04/27/25 23:45 Blood Pressure 167/74 H 04/27/25 23:45 Pulse Oximetry 98 04/27/25 23:45 Oxygen Delivery Room Air 04/27/25 23:45 Temperature 97.5 F L 04/27/25 23:45 Pulse Rate 68 04/27/25 23:45 Respiratory Rate 18 04/27/25 23:45 Blood Pressure 167/74 H 04/27/25 23:45 Pulse Oximetry 98 04/27/25 23:45 Oxygen Delivery Room Air 04/27/25 23:45 <Geno Huang, [employer]ING [employer]SEMBLER - Last Filed: 04/28/25 02:45> Vital Signs Temperature 97.5 F L 04/27/25 23:45 Pulse Rate 68 04/27/25 23:45 Respiratory Rate 18 04/27/25 23:45 Blood Pressure 167/74 H 04/27/25 23:45 Pulse Oximetry 98 04/27/25 23:45 Oxygen Delivery Room Air 04/27/25 23:45 Temperature 97.5 F L 04/27/25 23:45 Pulse Rate 68 04/27/25 23:45 Respiratory Rate 18 04/27/25 23:45 Blood Pressure 167/74 H 04/27/25 23:45 Pulse Oximetry 98 04/27/25 23:45 Oxygen Delivery Room Air 04/27/25 23:45 <Micah Taylor, DO - Last Filed: 04/28/25 06:10> Medical Decision Making MDM Narrative Medical decision making narrative: Patient is a 65-year-old male who presents to the ER with his right ear pulsating. He reports the symptom is so strong it woke him out of his sleep last night. Patient denies any significant pain to the area, is concerned that he has an aneurysm. He denies any headaches, visual changes, neck pain, mastoid tenderness or recent fevers. Patient endorses a history of high blood pressure and reports he is on three blood pressure medications. His chart also indicates he has a history of vertigo and hyperlipidemia. * Patient provided with significant reassurance regarding his symptoms but he is insistent on having a CT scan performed. Labs Ordered: CBC, CMP Imaging Ordered: CTA brain carotid, CT mastoids bilaterally, CT brain Medications Ordered: None necessary 0300-Care signed out to Dr. Taylor pending CT scan results. <Geno Huang, [employer] AND [employer]LOORING ASSEMBLER - Last Filed: 04/28/25 02:45> Patient is a 65-year-old male who presents to the ER with his right ear pulsating. He reports the symptom is so strong it woke him out of his sleep last night. Patient denies any significant pain to the area, is concerned that he has an aneurysm. He denies any headaches, visual changes, neck pain, mastoid tenderness or recent fevers. Patient endorses a history of high blood pressure and reports he is on three blood pressure medications. His chart also indicates he has a history of vertigo and hyperlipidemia. * Patient provided with significant reassurance regarding his symptoms but he is insistent on having a CT scan performed. Labs Ordered: CBC, CMP Imaging Ordered: CTA brain carotid, CT mastoids bilaterally, CT brain Medications Ordered: None necessary 0300-Care signed out to Dr. Taylor pending CT scan results. CT head reveals no hemorrhage, no hydrocephalus, no mass effect, no herniation. CTA of the head reveals no acute occlusion, severe stenosis, or aneurysm. CTA of the neck reveals no significant stenosis or dissection. CT IAC reveals mild right mastoid effusion. Middle ear and external auditory canal clear bilaterally. For the labs ordered including blood cultures, CRP, ESR, lactate, coags. On my assessment of the patient patient is sleeping comfortably appearing no acute distress, upon waking the patient patient notes that he feels well at this time. On my examination of the patient there is scant erythema and minimal tenderness to palpation of the right mastoid, no swelling, there is also scant erythema over the left mastoid as well, does not appear clinically significant.. Patient informed of results. Discussed plan to discussed with ENT, patient has a preference for [facility], will contact the [facility] access line at this time. [facility] access line contacted, pending call back from ENT. I spoke with Dr. Rivera from ENT at [facility] who was reviewed the imaging, notes they would not treat this patient for mastoiditis, do not recommend any antibiotic administration, do not recommend any transfer, do not recommend admission or even any antibiotics whatsoever, do not feel as though this is consistent with mastoiditis especially given no infection of the middle ear. They do note that the patient's carotid artery has very little separation from the middle ear which is why he is likely experiencing the pulsatility and note that they can see him as an outpatient in the next 1-2 weeks electively is there is some surgical options available in the can discuss this with him as an outpatient. The scheduling number is [phone]. I informed patient of the discussion had with ENT patient is relieved to hear this and notes that he does not have any pulsatility at this time. Patient was reassessed at the bedside. No changes in physical exam. Patient is in no acute distress. The patient has remained stable throughout the entire ED visit. Counseled patient regarding diagnostic results and potential diagnosis. Anticipatory guidance provided. Patient instructed to follow up with ENT in 1-2 weeks. Patient counseled on: false reassurance from an emergency department evaluation; no current evidence of a medical emergency; return immediately for any new, recurrent, worsening, concerning, or refractory symptoms. Additional verbal and printed discharge instructions were given and discussed with the patient. Patient verbally acknowledges understanding of condition and discharge instructions. All questions were answered to the patient's satisfaction. Patient is in agreement with the plan of care. The patient is stable for discharge and was discharged without incident. <Micah Taylor, - Last Filed: 04/28/25 06:10> Differential Diagnosis Differential Diagnosis: Tinnitus, mastoiditis, otitis media <Geno Huang, [employer]ING [employer]SEMBLER - Last Filed: 04/28/25 02:45> Vital Signs Vital Signs: Vital Signs Temperature 97.5 F L 04/27/25 23:45 Pulse Rate 68 04/27/25 23:45 Respiratory Rate 18 04/27/25 23:45 Blood Pressure 167/74 H 04/27/25 23:45 Pulse Oximetry 98 04/27/25 23:45 Oxygen Delivery Room Air 04/27/25 23:45 Temperature 97.5 F L 04/27/25 23:45 Pulse Rate 68 04/27/25 23:45 Respiratory Rate 18 04/27/25 23:45 Blood Pressure 167/74 H 04/27/25 23:45 Pulse Oximetry 98 04/27/25 23:45 Oxygen Delivery Room Air 04/27/25 23:45 <Geno Huang, [employer]ING ASSEMBLER - Last Filed: 04/28/25 02:45> Vital Signs Temperature 97.5 F L 04/27/25 23:45 Pulse Rate 68 04/27/25 23:45 Respiratory Rate 18 04/27/25 23:45 Blood Pressure 167/74 H 04/27/25 23:45 Pulse Oximetry 98 04/27/25 23:45 Oxygen Delivery Room Air 04/27/25 23:45 Temperature 97.5 F L 04/27/25 23:45 Pulse Rate 68 04/27/25 23:45 Respiratory Rate 18 04/27/25 23:45 Blood Pressure 167/74 H 04/27/25 23:45 Pulse Oximetry 98 04/27/25 23:45 Oxygen Delivery Room Air 04/27/25 23:45 <Micah Taylor DO - Last Filed: 04/28/25 06:10> Lab Data Result diagrams: 04/28/25 02:47 04/28/25 02:47 <Geno Huang, [employer]ING ASSEMBLER - Last Filed: 04/28/25 02:45> Labs: Lab Results 04/28/25 Range/Units 02:47 WBC 8.0 (4.5-10.0) K/mm3 RBC 5.63 (4.6-6.20) M/mm3 Hgb 16.2 (14.0-18.0) g/dL Hct 49.0 (42.0-52.0) % MCV 87.0 (80-100) fl MCH 28.8 (26-34) pg MCHC 33.1 (32-36) g/dl RDW 13.1 (11.5-14.5) % Plt Count 190 (150-375) k/mm3 MPV 10.6 H (7.4-10.4) fl Immature Gran % (Auto) 0.3 (0-0.5) % Neut % (Auto) 59.9 (45.5-73.1) % Lymph % (Auto) 25.7 (18.3-44.2) % [place] % (Auto) 8.9 H (2.6-8.5) % Eos % (Auto) 4.3 (0-4.4) % Baso % (Auto) 0.9 (0.2-1.2) % Lymph # (Auto) 2.05 (0.9-3.2) K/mm3 [place] # (Auto) 0.7 H (0.1-0.6) K/mm3 Eos # (Auto) 0.3 (0-0.3) K/mm3 Baso # (Auto) 0.1 (0.0-0.1) K/mm3 Abs Immat Gran (auto) 0.02 (0.00-0.031) K/mm3 Absolute Neuts (auto) 4.8 (1.3-6.7) K/mm3 Absolute Nucleated RBC 0.000 (0.0-0.012) K/mm3 Nucleated RBC % 0.0 (0.0-0.2) % Sodium 141 (137-145) mmol/L Potassium 4.0 (3.4-5.0) mmol/L Chloride 105 (98-107) mmol/L Carbon Dioxide 27 (22-30) mmol/L Anion Gap 9 (4-12) mmol/L BUN 24 H (9-20) mg/dL Creatinine 1.24 (0.7-1.3) mg/dL Estim Creat Clear Calc 59 ml/min Estimated GFR 59 (59 - ) Glucose 133 H (65-110) mg/dL Calcium 9.3 (8.4-10.2) mg/dL Total Bilirubin 0.7 (0.2-1.3) mg/dL AST 34 (17-59) U/L ALT 21 (6-50) U/L Alkaline Phosphatase 64 (38-126) U/L Total Protein 8.4 H (6.3-8.2) g/dL Albumin 4.7 (3.5-5.1) g/dL <Geno ParryGisela Huang, INSULATION AND FLOORING ASSEMBLER - Last Filed: 04/28/25 02:45> Lab Results 04/28/25 Range/Units 02:47 WBC 8.0 (4.5-10.0) K/mm3 RBC 5.63 (4.6-6.20) M/mm3 Hgb 16.2 (14.0-18.0) g/dL Hct 49.0 (42.0-52.0) % MCV 87.0 (80-100) fl MCH 28.8 (26-34) pg MCHC 33.1 (32-36) g/dl RDW 13.1 (11.5-14.5) % Plt Count 190 (150-375) k/mm3 MPV 10.6 H (7.4-10.4) fl Immature Gran % (Auto) 0.3 (0-0.5) % Neut % (Auto) 59.9 (45.5-73.1) % Lymph % (Auto) 25.7 (18.3-44.2) % [place] % (Auto) 8.9 H (2.6-8.5) % Eos % (Auto) 4.3 (0-4.4) % Baso % (Auto) 0.9 (0.2-1.2) % Lymph # (Auto) 2.05 (0.9-3.2) K/mm3 [place] # (Auto) 0.7 H (0.1-0.6) K/mm3 Eos # (Auto) 0.3 (0-0.3) K/mm3 Baso # (Auto) 0.1 (0.0-0.1) K/mm3 Abs Immat Gran (auto) 0.02 (0.00-0.031) K/mm3 Absolute Neuts (auto) 4.8 (1.3-6.7) K/mm3 Absolute Nucleated RBC 0.000 (0.0-0.012) K/mm3 Nucleated RBC % 0.0 (0.0-0.2) % Sodium 141 (137-145) mmol/L Potassium 4.0 (3.4-5.0) mmol/L Chloride 105 (98-107) mmol/L Carbon Dioxide 27 (22-30) mmol/L Anion Gap 9 (4-12) mmol/L BUN 24 H (9-20) mg/dL Creatinine 1.24 (0.7-1.3) mg/dL Estim Creat Clear Calc 59 ml/min Estimated GFR 59 (59 - ) Glucose 133 H (65-110) mg/dL Calcium 9.3 (8.4-10.2) mg/dL Total Bilirubin 0.7 (0.2-1.3) mg/dL AST 34 (17-59) U/L ALT 21 (6-50) U/L Alkaline Phosphatase 64 (38-126) U/L Total Protein 8.4 H (6.3-8.2) g/dL Albumin 4.7 (3.5-5.1) g/dL <Micah Taylor DO - Last Filed: 04/28/25 06:10> Discharge Plan Discharge Clinical Impression: Tinnitus <Geno Huang APRN - Last Filed: 04/28/25 02:45> Patient Disposition: Home <Geno Huang APRN - Last Filed: 04/28/25 02:45> Condition: Stable <Geno Huang APRN - Last Filed: 04/28/25 02:45> Instructions: Antibiotic Form, Tinnitus (ED) <Geno Huang APRN - Last Filed: 04/28/25 02:45> Additional Instructions: Follow-up with ENT Dr. Rivera in the next 1-2 weeks to discuss further options, their phone number is [phone]. Return immediately to the emergency department for any new or concerning symptoms especially fever, new or concerning pain, or any emergent concerns for life, limb, eyesight. <Geno Huang APRN - Last Filed: 04/28/25 02:45> Patient Language: [place] <Geno Huang APRN - Last Filed: 04/28/25 02:45> Prescriptions: No Action rosuvastatin 40 mg tablet 40 mg PO DAILY lisinopril 40 mg tablet 40 mg PO DAILY amlodipine 10 mg tablet 10 mg PO DAILY nitroglycerin 0.4 mg tablet, sublingual 0.4 mg sublingual PRN PRN (Reason: chest pain) aspirin 81 mg tablet,delayed release (DR/EC) 81 mg PO DAILY carvedilol 12.5 mg tablet 12.5 mg PO BID meclizine 25 mg tablet 25 mg PO BID PRN (Reason: dizziness) Qty: 20 0RF fluticasone propionate 50 mcg/actuation spray,suspension 1 spray intranasal Q12H Qty: 48 0RF Rx Instructions: administer into each nostril <Geno Huang APRN - Last Filed: 04/28/25 02:45> Follow-up/Referrals: Danae Santos DO [Primary Care Provider, [facility]] <Geno Huang APRN - Last Filed: 04/28/25 02:45> Time of Disposition: 06:09 <Geno Huang APRN - Last Filed: 04/28/25 02:45> 06:09 <Micah Taylor DO - Last Filed: 04/28/25 06:10>
[2025-04-28 03:09] LABS: Hematocrit 49.0 % (42.0-52.0); Hemoglobin 16.2 g/dL (14.0-18.0); Immature Granulocyte Percent A 0.3 % (0-0.5); Lymphocytes Absolute Auto 2.05 K/mm3 (0.9-3.2); Mean Corpuscular HGB Conc 33.1 g/dl (32-36); Mean Corpuscular Hemoglobin 28.8 pg (26-34); Mean Corpuscular Volume 87.0 fl (80-100); Nucleated Red Blood Cells Absolute Auto 0.000 K/mm3 (0.0-0.012); Nucleated Red Blood Cells Perc 0.0 % (0.0-0.2); Platelet Count Result 190 k/mm3 (150-375); Red Blood Count 5.63 M/mm3 (4.6-6.20); White Blood Count 8.0 K/mm3 (4.5-10.0)
[2025-04-28 03:11] LABS: Alanine Aminotransferase 21 U/L (6-50); Albumin Level 4.7 g/dL (3.5-5.1); Alkaline Phosphatase 64 U/L (38-126); Anion Gap 9 mmol/L (4-12); Aspartate Amino Transferase 34 U/L (17-59); Bilirubin,Total 0.7 mg/dL (0.2-1.3); Blood Urea Nitrogen 24 mg/dL (9-20); Calcium 9.3 mg/dL (8.4-10.2); Carbon Dioxide 27 mmol/L (22-30); Chloride 105 mmol/L (98-107); Estimated CRCL calculation 59 ml/min; Estimated Glomerular Filt Rate 59; Glucose 133 mg/dL (65-110); Potassium 4.0 mmol/L (3.4-5.0); Sodium 141 mmol/L (137-145); Total Protein 8.4 g/dL (6.3-8.2)
[2025-04-28 06:26] VITALS: BP 127/88; PULSE 77; RESP 18; O2SAT 99
== END 2025-04-28 06:27 | disposition home or self-care (01) ==
PROVIDERS: Registered Nurse; Emergency Provider Student in an Organized Health Care Education/Training Program; PCP Family Medicine
DX: H93.11 Tinnitus, right ear (principal); I10 Essential (primary) hypertension; E78.5 Hyperlipidemia, unspecified; Z95.1 Presence of aortocoronary bypass graft; Z79.82 Long term (current) use of aspirin; Z79.899 Other long term (current) drug therapy
CPT/HCPCS: 36415; 70496; 70498; 80053; 85025; 99284; Q9967